=== PATIENT | female | born 1985 | race Caucasian/White ===

== ENCOUNTER 2019-10-18 20:16 | Inpatient (IN) | payer MEDICAID, OTHER ==
[~2019-10-18] VITALS: Ht 157.5 cm; Wt 106.2 kg
[~2019-10-18 20:16] MED LIST: HYDR-2510 MT; LABE300T3 MT
[2019-10-18] MEDS ORDERED: ACETAMINOPHEN 650MG SUPP PR STA (20:40)
[2019-10-18] MEDS ORDERED: SODIUM CHLORIDE 0.9% 1000ML BAG (SEPSIS BOLUS) IV ONE (20:45)
[2019-10-18] MEDS ORDERED: LEVOFLOXACIN 750MG PREMIX 150 ML IV ONE (20:45)
[2019-10-18] MEDS ORDERED: VANCOMYCIN 1 G PREMIX 200 ML IV ONE (20:45)
[2019-10-18] MEDS ORDERED: HYDROCORTISONE SOD SUCCINATE 100 MG/2 ML VIAL IV ONE (20:45)
[2019-10-18] MEDS ORDERED: ALBUTEROL (0.083%) 2.5MG/3ML NEB ONE (20:54)
[2019-10-18] MEDS ORDERED: VECURONIUM BROMIDE 10 MG/VIAL IV ONE ×2 (21:05→21:30)
[2019-10-18] MEDS ORDERED: SODIUM CHLORIDE 0.9% 10ML VIAL ONE (21:05)
[2019-10-18] MEDS ORDERED: ETOMIDATE 2MG/ML 10ML VIAL IV ONE ×2 (21:05→21:30)
[2019-10-18] MEDS ORDERED: LORAZEPAM 2MG/ML CPJ IV ONE (21:30)
[2019-10-18] MEDS ORDERED: PROPOFOL 10MG/ML 100ML 100 ML IV ONE (21:30)
[2019-10-18 21:59] LABS: HEMATOCRIT. 28.1 % (36.0-48.0); HEMOGLOBIN. 9.1 g/dL (12.0-16.0); MEAN CORPUSCULAR HEMOGLOBIN 31.5 pg (28.0-32.0); MEAN CORPUSCULAR VOLUME 97.5 fL (81.0-99.0); MEAN PLATELET VOLUME 8.4 fl (7.4-10.4); PLATELET 385 x1000/uL (130-400); RED BLOOD CELL COUNT 2.88 mill/uL (4.2-5.4); RED CELL DISTRIBUTION WIDTH 20.5 % (11.6-14.6)
[2019-10-18 22:02] LABS: CLARITY URINE CLEAR (CLEAR); COLOR URINE YELLOW (YELLOW); KETONES URINE NEGATIVE (NEGATIVE); LEUKOCYTE ESTERASE URINE 3+ (NEGATIVE); NITRITE URINE NEGATIVE (NEGATIVE); OCCULT BLOOD URINE TRACE (NEGATIVE); PROTEIN URINE 1+ (NEGATIVE); SPECIFIC GRAVITY URINE 1.009 (1.005-1.030); UROBILINOGEN URINE 0.2 E.U./dL (0.2-1.0)
[2019-10-18 22:15] LABS: CHLORIDE 99 mEq/L (98-107)
[2019-10-18 22:44] LABS: BG BASE EXCESS -7.9 mmol/L (-2.0-2.0); BG CARBOXYHEMOGLOBIN 0.3 % (0.5-1.5); BG DEOXYHEMOGLOBIN 1.3 % (0.0-5.0); BG FRACTION INSPIRED OXYGEN 100; BG HCO3 ACT 20.1 mmol/L (22.0-26.0); BG METHEMOGLOBIN 0.3 % (0.0-1.5); BG OXYGEN SATURATION 98.7 % (92.0-98.5); BG OXYHEMOGLOBIN 98.1 % (94.0-97.0); BG PCO2 54.1 mmHg (35.0-45.0); BG PH 7.188 (7.350-7.450); BG PO2 171.2 mmHg (75.0-100.0); BG SAMPLE SITE RIGHT RADIAL; BG TIDAL VOLUME(mL) 550 mL; BG TOTAL HEMOGLOBIN 8.7 g/dL (12.0-18.0); BG VENT MODE VENT - A/C; BG VENT RATE 16 set
[2019-10-18] MEDS ORDERED: SODIUM POLYSTYRENE SULFONATE 15 G/60 ML BOT NG ONE (22:45)
[2019-10-18] MEDS ORDERED: CALCIUM CHLORIDE 1GM/10ML SYR IV ONE (22:45)
[2019-10-18] MEDS ORDERED: SODIUM BICARBONATE 8.4% 1 MEQ/ML 50ML SYR IV ONE (22:45)
[2019-10-18 22:50] LABS: INR 0.9
[2019-10-18 22:54] LABS: ATYPICAL LYMPHOCYTES 3; PLATELET ESTIMATE NORMAL
[2019-10-19] VITALS (74 sets, daily range): BP systolic 109–175; BP diastolic 54–105
[2019-10-19] MEDS ORDERED: LEVOFLOXACIN 750MG PREMIX 150 ML IV SCH (05:30)
[2019-10-19] MEDS ORDERED: MAGNESIUM/ALUMINUM HYDROXIDE/SIMETHICONE 30ML UDC PO PRN (06:30)
[2019-10-19] MEDS ORDERED: HYDROCODONE/ACETAMINOPHEN 5/325MG TABLET GT PRN (06:30)
[2019-10-19] MEDS ORDERED: DOCUSATE SODIUM SUGAR FREE 100MG/10ML UDC GT PRN (06:30)
[2019-10-19] MEDS ORDERED: IPRATROPIUM/ALBUTEROL 0.5-3(2.5)MG/3ML NEB NEB PRN (06:30)
[2019-10-19] MEDS ORDERED: LEVOFLOXACIN 500MG PREMIX 100 ML IV SCH (06:30)
[2019-10-19] MEDS ORDERED: GUAIFENESIN 200MG/10ML SUGAR FREE UDC PO PRN (06:30)
[2019-10-19] MEDS ORDERED: ONDANSETRON HCL 4MG/2ML INJ IV PRN (06:30)
[2019-10-19] MEDS ORDERED: DIPHENHYDRAMINE 50MG/ML VIAL IV PRN (06:30)
[2019-10-19] MEDS ORDERED: NA PHOS,M-B/NA PHOS,DI-BA ENEMA 118ML PR PRN (06:30)
[2019-10-19] MEDS: DEXT 5%/0.45% NACL 1000ML 1,000 ML IV SCH ×2 (07:00→19:14)
[2019-10-19 07:45] LABS: BG BASE EXCESS -5.9 mmol/L (-2.0-2.0); BG CARBOXYHEMOGLOBIN 0.3 % (0.5-1.5); BG DEOXYHEMOGLOBIN 4.6 % (0.0-5.0); BG HCO3 ACT 18.1 mmol/L (22.0-26.0); BG METHEMOGLOBIN 0.1 % (0.0-1.5); BG OXYGEN SATURATION 95.4 % (92.0-98.5); BG PCO2 29.4 mmHg (35.0-45.0); BG PH 7.407 (7.350-7.450); BG PO2 74.3 mmHg (75.0-100.0); BG SAMPLE SITE RIGHT BRACHIAL; BG TIDAL VOLUME(mL) 550 mL; BG TOTAL HEMOGLOBIN 7.2 g/dL (12.0-18.0); BG VENT MODE VENT - A/C; BG VENT RATE 22 set
[2019-10-19] MEDS ORDERED: VANCOMYCIN 1 G PREMIX 200 ML IV NR (08:00)
[2019-10-19] MEDS: ASPIRIN 81MG TABLET GT SCH (08:27)
[2019-10-19] MEDS: ENOXAPARIN 40MG/0.4ML SYR SUBCUT SCH (08:28)
[2019-10-19] MEDS: METRONIDAZOLE 500 MG PREMIX 100 ML IV SCH ×3 (08:28→21:08)
[2019-10-19] MEDS: PROPOFOL 10MG/ML 100ML 100 ML IV PRN ×2 (13:16→20:59)
[2019-10-19] MEDS ORDERED: LEVOFLOXACIN 250MG PREMIX 50 ML IV SCH (22:00)
[2019-10-20] VITALS (95 sets, daily range): BP systolic 129–184; BP diastolic 73–114
[2019-10-20] MEDS: PROPOFOL 10MG/ML 100ML 100 ML IV PRN (02:34)
[2019-10-20 05:24] LABS: HEMOGLOBIN. 8.1 g/dL (12.0-16.0); MEAN CORPUSCULAR HEMOGLOBIN 33.9 pg (28.0-32.0); MEAN CORPUSCULAR VOLUME 95.9 fL (81.0-99.0); MEAN PLATELET VOLUME 8.6 fl (7.4-10.4); PLATELET 250 x1000/uL (130-400); RED BLOOD CELL COUNT 2.39 mill/uL (4.2-5.4); RED CELL DISTRIBUTION WIDTH 20.3 % (11.6-14.6)
[2019-10-20 05:30] LABS: CHLORIDE 107 mEq/L (98-107)
[2019-10-20 05:40] LABS: T4 FREE 0.97 ng/dL (0.76-1.46)
[2019-10-20 05:51] LABS: LDL CHOLESTEROL 59 mg/dL (5-100)
[2019-10-20 05:56] LABS: HDL CHOLESTEROL 33 mg/dL (40-59)
[2019-10-20] MEDS: METRONIDAZOLE 500 MG PREMIX 100 ML IV SCH ×3 (06:27→22:12)
[2019-10-20] MEDS: DEXT 5%/0.45% NACL 1000ML 1,000 ML IV SCH ×3 (06:28→22:13)
[2019-10-20 06:37] LABS: PLATELET ESTIMATE NORMAL
[2019-10-20] MEDS: POTASSIUM CHLORIDE 20MEQ/PACKET PO SCH ×2 (08:18→16:47)
[2019-10-20] MEDS: ASPIRIN 81MG TABLET GT SCH (08:18)
[2019-10-20] MEDS: AMLODIPINE 5MG TABLET PO SCH (08:19)
[2019-10-20] MEDS: LEVOTHYROXINE SODIUM 50MCG TABLET PO SCH (08:19)
[2019-10-20] MEDS: ENOXAPARIN 40MG/0.4ML SYR SUBCUT SCH (08:20)
[2019-10-20 09:45] LABS: BG BASE EXCESS 0.1 mmol/L (-2.0-2.0); BG CARBOXYHEMOGLOBIN 0.3 % (0.5-1.5); BG DEOXYHEMOGLOBIN 0.8 % (0.0-5.0); BG FRACTION INSPIRED OXYGEN 85; BG HCO3 ACT 23.7 mmol/L (22.0-26.0); BG METHEMOGLOBIN 0.3 % (0.0-1.5); BG OXYGEN SATURATION 99.2 % (92.0-98.5); BG OXYHEMOGLOBIN 98.6 % (94.0-97.0); BG PH 7.462 (7.350-7.450); BG PO2 220.7 mmHg (75.0-100.0); BG SAMPLE SITE RIGHT RADIAL; BG TIDAL VOLUME(mL) 550 mL; BG TOTAL HEMOGLOBIN 8.4 g/dL (12.0-18.0); BG VENT MODE VENT - A/C; BG VENT RATE 22 set
[2019-10-20] MEDS ORDERED: LORAZEPAM 2MG/ML CPJ IV PRN (10:45)
[2019-10-20] MEDS ORDERED: MORPHINE SULFATE 2 MG/ML CPJ (NOT FOR IM USE) IV PRN (11:00)
[2019-10-20] MEDS: LEVOFLOXACIN 750MG PREMIX 150 ML IV SCH (11:14)
[2019-10-20] MEDS: CLONIDINE 0.1MG TABLET PO PRN (11:15)
[2019-10-20] MEDS: HYDRALAZINE HCL 25MG TABLET PO SCH ×2 (13:25→22:13)
[2019-10-20] MEDS: MORPHINE SULFATE 2 MG/ML CPJ (NOT FOR IM USE) IV PRN (13:26)
[2019-10-20] MEDS ORDERED: CLONIDINE 0.1MG TABLET PO NR (15:15)
[2019-10-20] MEDS: LORAZEPAM 2MG/ML CPJ IV PRN (15:29)
[2019-10-20] MEDS: IPRATROPIUM/ALBUTEROL 0.5-3(2.5)MG/3ML NEB HHN SCH (20:20)
[2019-10-21] VITALS (34 sets, daily range): BP systolic 125–184; BP diastolic 77–111
[2019-10-21] MEDS: LORAZEPAM 2MG/ML CPJ IV PRN ×3 (00:05→23:51)
[2019-10-21] MEDS: MORPHINE SULFATE 2 MG/ML CPJ (NOT FOR IM USE) IV PRN (00:07)
[2019-10-21] MEDS: CLONIDINE 0.1MG TABLET PO PRN ×3 (00:09→23:51)
[2019-10-21] MEDS: HYDRALAZINE HCL 25MG TABLET PO SCH ×3 (05:33→21:29)
[2019-10-21] MEDS: METRONIDAZOLE 500 MG PREMIX 100 ML IV SCH ×3 (05:33→21:28)
[2019-10-21] MEDS: LEVOTHYROXINE SODIUM 50MCG TABLET PO SCH (05:33)
[2019-10-21 05:39] LABS: HEMATOCRIT. 24.4 % (36.0-48.0); HEMOGLOBIN. 8.3 g/dL (12.0-16.0); MEAN CORPUSCULAR HEMOGLOBIN 32.3 pg (28.0-32.0); MEAN CORPUSCULAR VOLUME 95.4 fL (81.0-99.0); MEAN PLATELET VOLUME 8.1 fl (7.4-10.4); PLATELET 272 x1000/uL (130-400); RED BLOOD CELL COUNT 2.56 mill/uL (4.2-5.4); RED CELL DISTRIBUTION WIDTH 19.9 % (11.6-14.6)
[2019-10-21 05:48] LABS: PHOSPHORUS 3.6 mg/dL (2.5-4.9)
[2019-10-21] MEDS ORDERED: POTASSIUM CHLORIDE 20MEQ/PACKET PO SCH (06:30)
[2019-10-21] MEDS: DEXTROSE 5% WATER 1,000 ML IV SCH ×2 (06:41→22:12)
[2019-10-21] MEDS ORDERED: MAGNESIUM 2 G PREMIX 50 ML IV SCH (08:00)
[2019-10-21] MEDS ORDERED: POTASSIUM CHLORIDE INJ 60 MEQ in DEXT 5% WATER 500 ML IV SCH (08:00)
[2019-10-21 08:15] LABS: NUCLEATED RED BLOOD CELLS 1 /100 WBC; PLATELET ESTIMATE NORMAL
[2019-10-21 08:19] LABS: BG BASE EXCESS -4.5 mmol/L (-2.0-2.0); BG CARBOXYHEMOGLOBIN 0.7 % (0.5-1.5); BG DEOXYHEMOGLOBIN 1.2 % (0.0-5.0); BG HCO3 ACT 19.5 mmol/L (22.0-26.0); BG METHEMOGLOBIN 0.4 % (0.0-1.5); BG OXYGEN SATURATION 98.8 % (92.0-98.5); BG OXYHEMOGLOBIN 97.7 % (94.0-97.0); BG PCO2 30.9 mmHg (35.0-45.0); BG PH 7.417 (7.350-7.450); BG PO2 149.3 mmHg (75.0-100.0); BG SAMPLE SITE RIGHT BRACHIAL; BG TIDAL VOLUME(mL) 550 mL; BG TOTAL HEMOGLOBIN 7.7 g/dL (12.0-18.0); BG VENT MODE VENT - A/C; BG VENT RATE 16 set
[2019-10-21] MEDS: IPRATROPIUM/ALBUTEROL 0.5-3(2.5)MG/3ML NEB HHN SCH ×2 (09:39→14:38)
[2019-10-21] MEDS: AMLODIPINE 5MG TABLET PO SCH (11:34)
[2019-10-21] MEDS: ASPIRIN 81MG TABLET GT SCH (11:34)
[2019-10-21] MEDS: ENOXAPARIN 40MG/0.4ML SYR SUBCUT SCH (11:34)
[2019-10-22] VITALS (35 sets, daily range): BP systolic 131–176; BP diastolic 78–109
[2019-10-22] MEDS: METRONIDAZOLE 500 MG PREMIX 100 ML IV SCH ×3 (05:46→23:28)
[2019-10-22] MEDS: LEVOTHYROXINE SODIUM 50MCG TABLET PO SCH (05:53)
[2019-10-22] MEDS: HYDRALAZINE HCL 25MG TABLET PO SCH ×3 (05:53→21:39)
[2019-10-22 05:58] LABS: HEMATOCRIT. 25.6 % (36.0-48.0); HEMOGLOBIN. 8.5 g/dL (12.0-16.0); MEAN CORPUSCULAR HEMOGLOBIN 31.4 pg (28.0-32.0); MEAN CORPUSCULAR VOLUME 95.1 fL (81.0-99.0); MEAN PLATELET VOLUME 7.9 fl (7.4-10.4); PLATELET 296 x1000/uL (130-400); RED CELL DISTRIBUTION WIDTH 20.2 % (11.6-14.6)
[2019-10-22 06:19] LABS: PHOSPHORUS 3.1 mg/dL (2.5-4.9)
[2019-10-22 06:56] LABS: PLATELET ESTIMATE NORMAL
[2019-10-22] MEDS: ASPIRIN 81MG TABLET GT SCH (08:38)
[2019-10-22] MEDS: AMLODIPINE 5MG TABLET PO SCH (08:38)
[2019-10-22] MEDS: DESMOPRESSIN ACETATE 0.1MG TABLET PO SCH ×2 (08:38→23:28)
[2019-10-22] MEDS: LORAZEPAM 2MG/ML CPJ IV PRN ×2 (08:39→21:57)
[2019-10-22] MEDS: POTASSIUM CHLORIDE 20MEQ/PACKET PO SCH ×2 (08:39→17:56)
[2019-10-22] MEDS: ENOXAPARIN 30MG/0.3ML SYR SUBCUT SCH ×2 (08:39→21:39)
[2019-10-22] MEDS: IPRATROPIUM/ALBUTEROL 0.5-3(2.5)MG/3ML NEB HHN SCH ×3 (09:02→20:50)
[2019-10-22] MEDS: LEVOFLOXACIN 750MG PREMIX 150 ML IV SCH (10:58)
[2019-10-22] MEDS: ACETYLCYSTEINE 100MG/ML 10% VIAL 4ML INH SCH (13:50)
[2019-10-22] MEDS ORDERED: VANCOMYCIN 1,000 MG in DEXT 5% WATER 250 ML IV SCH (14:00)
[2019-10-22] MEDS: NYSTATIN POWDER 15GM TOP SCH (18:47)
[2019-10-22] MEDS: CLONIDINE 0.1MG TABLET PO PRN (21:39)
[2019-10-23] VITALS (12 sets, daily range): BP systolic 138–161; BP diastolic 80–100
[2019-10-23] MEDS: ACETAMINOPHEN 325MG TABLET PO PRN ×2 (01:06→21:44)
[2019-10-23] MEDS: IPRATROPIUM/ALBUTEROL 0.5-3(2.5)MG/3ML NEB HHN SCH ×4 (02:30→20:09)
[2019-10-23] MEDS: HYDRALAZINE HCL 25MG TABLET PO SCH ×3 (06:23→21:44)
[2019-10-23] MEDS: METRONIDAZOLE 500 MG PREMIX 100 ML IV SCH ×3 (06:23→21:44)
[2019-10-23 06:34] LABS: HEMATOCRIT. 24.1 % (36.0-48.0); HEMOGLOBIN. 8.3 g/dL (12.0-16.0); MEAN CORPUSCULAR HEMOGLOBIN 32.3 pg (28.0-32.0); MEAN CORPUSCULAR VOLUME 94.2 fL (81.0-99.0); MEAN PLATELET VOLUME 7.6 fl (7.4-10.4); PLATELET 279 x1000/uL (130-400); RED BLOOD CELL COUNT 2.56 mill/uL (4.2-5.4)
[2019-10-23 07:05] LABS: PHOSPHORUS 2.7 mg/dL (2.5-4.9)
[2019-10-23] MEDS: LEVOTHYROXINE SODIUM 50MCG TABLET PO SCH (07:08)
[2019-10-23 08:31] LABS: PLATELET ESTIMATE NORMAL
[2019-10-23] MEDS ORDERED: MAGNESIUM 2 G PREMIX 50 ML IV SCH (09:00)
[2019-10-23] MEDS: ENOXAPARIN 30MG/0.3ML SYR SUBCUT SCH ×2 (09:00→21:44)
[2019-10-23] MEDS: ASPIRIN 81MG TABLET GT SCH (09:17)
[2019-10-23] MEDS: DESMOPRESSIN ACETATE 0.1MG TABLET PO SCH ×2 (09:17→21:44)
[2019-10-23] MEDS: AMLODIPINE 5MG TABLET PO SCH (09:17)
[2019-10-23] MEDS: POTASSIUM CHLORIDE 20MEQ/PACKET PO SCH ×2 (09:18→17:31)
[2019-10-23] MEDS: NYSTATIN POWDER 15GM TOP SCH ×2 (09:19→17:30)
[2019-10-23] MEDS ORDERED: LEVOFLOXACIN 750MG PREMIX 150 ML IV SCH (11:00)
[2019-10-23] MEDS: SODIUM HYPOCHLORITE 0.125% 473ML SOLUTION TOP SCH ×2 (13:24→21:45)
[2019-10-23] MEDS: MORPHINE SULFATE 2 MG/ML CPJ (NOT FOR IM USE) IV PRN (15:32)
[2019-10-23] MEDS: ACETYLCYSTEINE 100MG/ML 10% VIAL 4ML INH SCH (20:09)
[2019-10-24] VITALS (12 sets, daily range): BP systolic 132–162; BP diastolic 81–102
[2019-10-24] MEDS: IPRATROPIUM/ALBUTEROL 0.5-3(2.5)MG/3ML NEB HHN SCH ×3 (02:02→20:37)
[2019-10-24] MEDS: ACETAMINOPHEN 325MG TABLET PO PRN (05:42)
[2019-10-24] MEDS: HYDRALAZINE HCL 25MG TABLET PO SCH ×3 (05:43→20:38)
[2019-10-24] MEDS: METRONIDAZOLE 500 MG PREMIX 100 ML IV SCH (05:43)
[2019-10-24 06:37] LABS: CHLORIDE 113 mEq/L (98-107); HEMATOCRIT. 24.4 % (36.0-48.0); HEMOGLOBIN. 8.2 g/dL (12.0-16.0); MEAN CORPUSCULAR HEMOGLOBIN 31.8 pg (28.0-32.0); MEAN CORPUSCULAR VOLUME 95.1 fL (81.0-99.0); MEAN PLATELET VOLUME 7.3 fl (7.4-10.4); PLATELET 295 x1000/uL (130-400); RED BLOOD CELL COUNT 2.56 mill/uL (4.2-5.4); RED CELL DISTRIBUTION WIDTH 19.9 % (11.6-14.6)
[2019-10-24] MEDS: LEVOTHYROXINE SODIUM 50MCG TABLET PO SCH (07:30)
[2019-10-24] MEDS: ACETYLCYSTEINE 100MG/ML 10% VIAL 4ML INH SCH ×2 (08:48→20:37)
[2019-10-24] MEDS: DESMOPRESSIN ACETATE 0.1MG TABLET PO SCH ×2 (08:59→20:38)
[2019-10-24] MEDS: ENOXAPARIN 30MG/0.3ML SYR SUBCUT SCH ×2 (08:59→20:38)
[2019-10-24] MEDS: SODIUM HYPOCHLORITE 0.125% 473ML SOLUTION TOP SCH ×2 (08:59→20:39)
[2019-10-24] MEDS: ASPIRIN 81MG TABLET GT SCH (08:59)
[2019-10-24] MEDS: NYSTATIN POWDER 15GM TOP SCH ×2 (08:59→17:55)
[2019-10-24] MEDS: POTASSIUM CHLORIDE 20MEQ/PACKET PO SCH ×2 (08:59→17:00)
[2019-10-24] MEDS: AMLODIPINE 5MG TABLET PO SCH (09:00)
[2019-10-24] MEDS: MAGNESIUM 2 G PREMIX 50 ML IV NR (11:30)
[2019-10-24] MEDS ORDERED: POTASSIUM PHOS,M-BASIC-D-BASIC 20 MMOL in DEXT 5% WATER 243.3333 ML IV NR (12:00)
[2019-10-24 12:31] LABS: PLATELET ESTIMATE NORMAL
[2019-10-24] MEDS: AZTREONAM 1 G in DEXTROSE 5% WATER 50 ML IV SCH (13:00)
[2019-10-24] MEDS ORDERED: VANCOMYCIN 1250MG in DEXTROSE 5% WATER 250ML IV SCH (14:00)
[2019-10-25] VITALS (18 sets, daily range): BP systolic 117–168; BP diastolic 60–101
[2019-10-25] MEDS: AZTREONAM 1 G in DEXTROSE 5% WATER 50 ML IV SCH ×2 (00:46→12:59)
[2019-10-25] MEDS: IPRATROPIUM/ALBUTEROL 0.5-3(2.5)MG/3ML NEB HHN SCH ×5 (02:16→20:27)
[2019-10-25] MEDS: CLONIDINE 0.1MG TABLET PO PRN (03:42)
[2019-10-25] MEDS: HYDRALAZINE HCL 25MG TABLET PO SCH ×3 (05:11→21:07)
[2019-10-25] MEDS: ACETAMINOPHEN 325MG TABLET PO PRN (05:15)
[2019-10-25 07:37] LABS: HEMATOCRIT. 24.1 % (36.0-48.0); MEAN CORPUSCULAR HEMOGLOBIN 31.6 pg (28.0-32.0); MEAN CORPUSCULAR VOLUME 95.9 fL (81.0-99.0); MEAN PLATELET VOLUME 7.6 fl (7.4-10.4); PLATELET 307 x1000/uL (130-400); RED BLOOD CELL COUNT 2.52 mill/uL (4.2-5.4); RED CELL DISTRIBUTION WIDTH 20.1 % (11.6-14.6)
[2019-10-25 07:59] LABS: CHLORIDE 112 mEq/L (98-107)
[2019-10-25] MEDS: LEVOTHYROXINE SODIUM 50MCG TABLET PO SCH (08:41)
[2019-10-25] MEDS: ENOXAPARIN 30MG/0.3ML SYR SUBCUT SCH (08:41)
[2019-10-25] MEDS: AMLODIPINE 5MG TABLET PO SCH (08:41)
[2019-10-25] MEDS: ASPIRIN 81MG TABLET GT SCH (08:41)
[2019-10-25] MEDS: POTASSIUM CHLORIDE 20MEQ/PACKET PO SCH ×2 (08:42→16:43)
[2019-10-25] MEDS: DESMOPRESSIN ACETATE 0.1MG TABLET PO SCH ×2 (08:42→21:07)
[2019-10-25] MEDS: SODIUM HYPOCHLORITE 0.125% 473ML SOLUTION TOP SCH ×2 (08:42→20:42)
[2019-10-25] MEDS: NYSTATIN POWDER 15GM TOP SCH ×2 (08:43→16:43)
[2019-10-25] MEDS: ACETYLCYSTEINE 100MG/ML 10% VIAL 4ML INH SCH ×3 (08:53→20:28)
[2019-10-25] MEDS: ACETAMINOPHEN 650MG/20.3ML UDC PEG PRN ×2 (11:20→18:26)
[2019-10-25] MEDS ORDERED: VANCOMYCIN 1,000 MG in DEXT 5% WATER 250 ML IV SCH (12:00)
[2019-10-25] MEDS ORDERED: VANCOMYCIN 750 MG in DEXT 5% WATER 250 ML IV SCH (12:00)
[2019-10-25 12:07] LABS: HEMATOCRIT 23.7 % (36.0-48.0); HEMOGLOBIN 7.8 g/dL (12.0-16.0)
[2019-10-25 15:28] LABS: PLATELET ESTIMATE NORMAL
[2019-10-25] MEDS ORDERED: DIGOXIN 500MCG/2ML AMP IV NR (15:30)
[2019-10-25] MEDS: PANTOPRAZOLE 40MG DR TABLET PO SCH (16:42)
[2019-10-25 18:49] LABS: HEMATOCRIT 22.9 % (36.0-48.0); HEMOGLOBIN 7.5 g/dL (12.0-16.0)
[2019-10-26] VITALS (17 sets, daily range): BP systolic 113–149; BP diastolic 69–101
[2019-10-26 00:55] LABS: HEMOGLOBIN 8.1 g/dL (12.0-16.0)
[2019-10-26] MEDS: AZTREONAM 1 G in DEXTROSE 5% WATER 50 ML IV SCH ×2 (01:10→14:13)
[2019-10-26 01:11] LABS: PROTHROMBIN TIME 11.2 sec (9.6-11.0)
[2019-10-26] MEDS: HYDRALAZINE HCL 25MG TABLET PO SCH ×3 (05:07→21:56)
[2019-10-26 07:46] LABS: HEMATOCRIT. 21.4 % (36.0-48.0); HEMOGLOBIN. 7.3 g/dL (12.0-16.0); MEAN CORPUSCULAR HEMOGLOBIN 32.3 pg (28.0-32.0); MEAN CORPUSCULAR VOLUME 94.3 fL (81.0-99.0); MEAN PLATELET VOLUME 7.5 fl (7.4-10.4); PLATELET 269 x1000/uL (130-400); RED BLOOD CELL COUNT 2.27 mill/uL (4.2-5.4); RED CELL DISTRIBUTION WIDTH 19.6 % (11.6-14.6)
[2019-10-26 08:04] LABS: CHLORIDE 113 mEq/L (98-107)
[2019-10-26] MEDS: POTASSIUM CHLORIDE 20MEQ/PACKET PO SCH (08:22)
[2019-10-26] MEDS: PANTOPRAZOLE 40MG DR TABLET PO SCH (08:27)
[2019-10-26] MEDS: AMLODIPINE 5MG TABLET PO SCH (08:27)
[2019-10-26] MEDS: IPRATROPIUM/ALBUTEROL 0.5-3(2.5)MG/3ML NEB HHN SCH ×3 (08:36→20:22)
[2019-10-26] MEDS: ACETYLCYSTEINE 100MG/ML 10% VIAL 4ML INH SCH (08:37)
[2019-10-26] MEDS: DESMOPRESSIN ACETATE 0.1MG TABLET PO SCH ×2 (08:55→21:56)
[2019-10-26] MEDS: LEVOTHYROXINE SODIUM 50MCG TABLET PO SCH (08:55)
[2019-10-26] MEDS: NYSTATIN POWDER 15GM TOP SCH ×2 (08:56→17:31)
[2019-10-26 14:04] LABS: PLATELET ESTIMATE NORMAL
[2019-10-26] MEDS: LINEZOLID 600 MG PREMIX 300 ML IV SCH (14:14)
[2019-10-26] MEDS ORDERED: VANCOMYCIN 750 MG in DEXT 5% WATER 250 ML IV SCH (18:00)
[2019-10-26 18:55] LABS: PROTHROMBIN TIME 10.7 sec (9.6-11.0)
[2019-10-27] VITALS (12 sets, daily range): BP systolic 112–152; BP diastolic 78–99
[2019-10-27] MEDS: AZTREONAM 1 G in DEXTROSE 5% WATER 50 ML IV SCH ×2 (01:07→13:02)
[2019-10-27] MEDS: LINEZOLID 600 MG PREMIX 300 ML IV SCH ×2 (01:08→13:03)
[2019-10-27] MEDS: ACETYLCYSTEINE 100MG/ML 10% VIAL 4ML INH SCH ×2 (01:50→08:50)
[2019-10-27] MEDS: IPRATROPIUM/ALBUTEROL 0.5-3(2.5)MG/3ML NEB HHN SCH ×4 (01:50→21:04)
[2019-10-27] MEDS: HYDRALAZINE HCL 25MG TABLET PO SCH ×3 (06:40→20:56)
[2019-10-27] MEDS: DESMOPRESSIN ACETATE 0.1MG TABLET PO SCH (09:04)
[2019-10-27] MEDS: LEVOTHYROXINE SODIUM 50MCG TABLET PO SCH (09:04)
[2019-10-27] MEDS: ACETAMINOPHEN 650MG/20.3ML UDC PEG PRN ×2 (09:04→23:27)
[2019-10-27] MEDS: PANTOPRAZOLE 40MG DR TABLET PO SCH (09:04)
[2019-10-27] MEDS: AMLODIPINE 5MG TABLET PO SCH (09:05)
[2019-10-27] MEDS: NYSTATIN POWDER 15GM TOP SCH ×2 (09:05→17:56)
[2019-10-27 12:22] LABS: HEMATOCRIT. 23.2 % (36.0-48.0); MEAN CORPUSCULAR HEMOGLOBIN 32.6 pg (28.0-32.0); MEAN CORPUSCULAR VOLUME 94.8 fL (81.0-99.0); MEAN PLATELET VOLUME 7.5 fl (7.4-10.4); PLATELET 244 x1000/uL (130-400); RED BLOOD CELL COUNT 2.45 mill/uL (4.2-5.4)
[2019-10-27 12:32] LABS: CHLORIDE 112 mEq/L (98-107)
[2019-10-27 13:15] LABS: NUCLEATED RED BLOOD CELLS 3 /100 WBC; PLATELET ESTIMATE NORMAL
[2019-10-27] MEDS ORDERED: POTASSIUM CHLORIDE 20MEQ/PACKET PO NR (18:30)
[2019-10-28] VITALS (12 sets, daily range): BP systolic 143–169; BP diastolic 90–102
[2019-10-28] MEDS: AZTREONAM 1 G in DEXTROSE 5% WATER 50 ML IV SCH ×2 (01:21→12:37)
[2019-10-28] MEDS: LINEZOLID 600 MG PREMIX 300 ML IV SCH ×2 (01:22→13:57)
[2019-10-28] MEDS: IPRATROPIUM/ALBUTEROL 0.5-3(2.5)MG/3ML NEB HHN SCH ×4 (01:57→20:53)
[2019-10-28] MEDS: HYDRALAZINE HCL 25MG TABLET PO SCH ×3 (05:44→21:32)
[2019-10-28 06:23] LABS: HEMATOCRIT. 22.2 % (36.0-48.0); HEMOGLOBIN. 7.5 g/dL (12.0-16.0); MEAN CORPUSCULAR HEMOGLOBIN 33.2 pg (28.0-32.0); MEAN CORPUSCULAR VOLUME 98.6 fL (81.0-99.0); MEAN PLATELET VOLUME 7.9 fl (7.4-10.4); PLATELET 233 x1000/uL (130-400); RED BLOOD CELL COUNT 2.25 mill/uL (4.2-5.4); RED CELL DISTRIBUTION WIDTH 18.7 % (11.6-14.6)
[2019-10-28 06:26] LABS: CHLORIDE 110 mEq/L (98-107)
[2019-10-28 08:51] LABS: NUCLEATED RED BLOOD CELLS 1 /100 WBC; PLATELET ESTIMATE NORMAL
[2019-10-28] MEDS: PANTOPRAZOLE 40MG DR TABLET PO SCH (09:09)
[2019-10-28] MEDS: NYSTATIN POWDER 15GM TOP SCH ×2 (09:09→17:35)
[2019-10-28] MEDS: AMLODIPINE 5MG TABLET PO SCH (09:09)
[2019-10-28] MEDS: LEVOTHYROXINE SODIUM 50MCG TABLET PO SCH (09:09)
[2019-10-28] MEDS: ACETAMINOPHEN 650MG/20.3ML UDC PEG PRN (12:37)
[2019-10-28] MEDS ORDERED: POTASSIUM CHLORIDE 20MEQ TABLET SR PO NR (20:15)
[2019-10-29] VITALS (12 sets, daily range): BP systolic 139–166; BP diastolic 52–101
[2019-10-29] MEDS: AZTREONAM 1 G in DEXTROSE 5% WATER 50 ML IV SCH ×2 (01:09→12:29)
[2019-10-29] MEDS: LINEZOLID 600 MG PREMIX 300 ML IV SCH ×2 (01:10→14:02)
[2019-10-29] MEDS: IPRATROPIUM/ALBUTEROL 0.5-3(2.5)MG/3ML NEB HHN SCH ×4 (01:57→20:25)
[2019-10-29] MEDS: HYDRALAZINE HCL 25MG TABLET PO SCH ×3 (06:12→22:06)
[2019-10-29 06:13] LABS: HEMATOCRIT. 24.1 % (36.0-48.0); HEMOGLOBIN. 8.1 g/dL (12.0-16.0); MEAN CORPUSCULAR HEMOGLOBIN 32.9 pg (28.0-32.0); MEAN CORPUSCULAR VOLUME 97.7 fL (81.0-99.0); MEAN PLATELET VOLUME 7.9 fl (7.4-10.4); PLATELET 252 x1000/uL (130-400); RED BLOOD CELL COUNT 2.47 mill/uL (4.2-5.4); RED CELL DISTRIBUTION WIDTH 18.9 % (11.6-14.6)
[2019-10-29 06:22] LABS: CHLORIDE 110 mEq/L (98-107)
[2019-10-29] MEDS ORDERED: POTASSIUM CHLORIDE 20MEQ TABLET SR PO NR (08:00)
[2019-10-29] MEDS ORDERED: POTASSIUM CHLORIDE 20MEQ/PACKET PO SCH (08:15)
[2019-10-29] MEDS: PANTOPRAZOLE 40MG DR TABLET PO SCH (09:13)
[2019-10-29] MEDS: LEVOTHYROXINE SODIUM 50MCG TABLET PO SCH (09:13)
[2019-10-29] MEDS: ACETAMINOPHEN 650MG/20.3ML UDC PEG PRN (09:14)
[2019-10-29] MEDS: AMLODIPINE 5MG TABLET PO SCH (09:14)
[2019-10-29] MEDS: NYSTATIN POWDER 15GM TOP SCH ×2 (09:20→16:35)
[2019-10-29] MEDS ORDERED: POTASSIUM CHLORIDE 20MEQ TABLET SR PO SCH (14:00)
[2019-10-29] MEDS: POTASSIUM CHLORIDE 20MEQ/PACKET GT SCH (16:35)
[2019-10-29 17:16] LABS: PLATELET ESTIMATE NORMAL
[2019-10-30] VITALS (12 sets, daily range): BP systolic 151–172; BP diastolic 87–122
[2019-10-30] MEDS: LINEZOLID 600 MG PREMIX 300 ML IV SCH ×2 (02:21→15:29)
[2019-10-30] MEDS: IPRATROPIUM/ALBUTEROL 0.5-3(2.5)MG/3ML NEB HHN SCH ×4 (02:22→20:54)
[2019-10-30] MEDS: HYDRALAZINE HCL 25MG TABLET PO SCH ×3 (05:15→21:07)
[2019-10-30 06:03] LABS: CHLORIDE 111 mEq/L (98-107)
[2019-10-30 06:48] LABS: HEMATOCRIT. 23.7 % (36.0-48.0); MEAN CORPUSCULAR HEMOGLOBIN 33.4 pg (28.0-32.0); MEAN CORPUSCULAR VOLUME 98.8 fL (81.0-99.0); PLATELET 250 x1000/uL (130-400)
[2019-10-30] MEDS: LEVOTHYROXINE SODIUM 50MCG TABLET PO SCH (08:34)
[2019-10-30] MEDS: AMLODIPINE 5MG TABLET PO SCH (08:34)
[2019-10-30] MEDS: POTASSIUM CHLORIDE 20MEQ/PACKET GT SCH (08:35)
[2019-10-30] MEDS: FAMOTIDINE 20MG TABLET PO SCH ×2 (08:35→21:07)
[2019-10-30] MEDS: NYSTATIN POWDER 15GM TOP SCH (08:35)
[2019-10-30] MEDS ORDERED: POTASSIUM CHLORIDE 20MEQ/PACKET PO SCH (09:30)
[2019-10-30 12:26] LABS: NUCLEATED RED BLOOD CELLS 3 /100 WBC
[2019-10-30 12:27] LABS: PLATELET ESTIMATE NORMAL
[2019-10-30] MEDS: AZTREONAM 1 G in DEXTROSE 5% WATER 50 ML IV SCH ×2 (14:44→22:15)
[2019-10-30] MEDS: CLONIDINE 0.1MG TABLET PO PRN (22:17)
[2019-10-31] VITALS: BP 149/97
== END 2019-10-31 01:00 | DRG 130 ==
LOC: ER 20:16 → MICUSO 22:37 → EDBEDREQ 23:00 → EDBEDREQSVC 23:01 → ENRESERV 10-19 02:01 → 5EST 10-22 16:10 → CVICU 10-30 18:25 → 5EST 10-30 18:29
PROVIDERS: ADMIT Internal Medicine; ATTEND Internal Medicine
PROC: 5A1955Z Respiratory Ventilation, Greater than 96 Consecutive Hours (ICD-10-PCS; principal; 2019-10-21)
PROC: 0B21XFZ Change Tracheostomy Device in Trachea, External Approach (ICD-10-PCS; 2019-10-21)
PROC: 30233N1 Transfusion of Nonautologous Red Blood Cells into Peripheral Vein, Percutaneous Approach (ICD-10-PCS; 2019-10-25)
DX: J95.09 Other tracheostomy complication (principal); N17.0 Acute kidney failure with tubular necrosis; J69.0 Pneumonitis due to inhalation of food and vomit; A41.9 Sepsis, unspecified organism; G93.41 Metabolic encephalopathy; E43 Unspecified severe protein-calorie malnutrition; J96.20 Acute and chronic respiratory failure, unspecified whether with hypoxia or hypercapnia; J95.03 Malfunction of tracheostomy stoma; I13.0 Hypertensive heart and chronic kidney disease with heart failure and stage 1 through stage 4 chronic kidney disease, or unspecified chronic kidney disease; N18.1 Chronic kidney disease, stage 1; E86.0 Dehydration; E87.5 Hyperkalemia; E87.1 Hypo-osmolality and hyponatremia; D64.9 Anemia, unspecified; E66.01 Morbid (severe) obesity due to excess calories; K21.9 Gastro-esophageal reflux disease without esophagitis; J98.11 Atelectasis; R41.89 Other symptoms and signs involving cognitive functions and awareness; E03.9 Hypothyroidism, unspecified; Y83.8 Other surgical procedures as the cause of abnormal reaction of the patient, or of later complication, without mention of misadventure at the time of the procedure; Y82.9 Unspecified medical devices associated with adverse incidents; R73.9 Hyperglycemia, unspecified; G62.9 Polyneuropathy, unspecified; L02.214 Cutaneous abscess of groin; Z79.899 Other long term (current) drug therapy; Z99.11 Dependence on respirator [ventilator] status; Z68.41 Body mass index [BMI] 40.0-44.9, adult; Z88.0 Allergy status to penicillin; Z88.8 Allergy status to other drugs, medicaments and biological substances; Q85.00 Neurofibromatosis, unspecified; Y92.89 Other specified places as the place of occurrence of the external cause; Z20.828 Contact with and (suspected) exposure to other viral communicable diseases
CPT/HCPCS: 31500; 36415; 36600; 71045; 73700; 80048; 80053; 80061; 80202; 81003; 82375; 82805; 83605; 83735; 84100; 84145; 84439; 84443; 84484; 85014; 85018; 85025; 85049; 85384; 86850; 86900; 86920; 87070; 87077; 87186; 87635; 87804; 93005; 94002; 94003; 94640; 96361; 96365; 96367; 96375; 99291; J1160; J1200; J1650; J1720; J1956; J2020; J2060; J2270; J2405; J2704; J3370; J3475; J3480; J3490; J7030; J7060; J7070; J7608; P9016

== ENCOUNTER 2019-12-01 22:07 | Inpatient (IN) | payer MEDICAID ==
[~2019-12-01] VITALS: Ht 157.5 cm; Wt 87.5 kg
[2019-12-01] MEDS ORDERED: SODIUM CHLORIDE 0.9% 500 ML IV ONE (22:24)
[2019-12-01] MEDS ORDERED: VANCOMYCIN 1 G PREMIX 200 ML IV ONE (22:30)
[2019-12-01] MEDS ORDERED: LEVOFLOXACIN 750MG PREMIX 150 ML IV ONE (22:30)
[2019-12-01 23:36] LABS: BG BASE EXCESS -9.2 mmol/L (-2.0-2.0); BG CARBOXYHEMOGLOBIN 0.4 % (0.5-1.5); BG DEOXYHEMOGLOBIN 1.3 % (0.0-5.0); BG FRACTION INSPIRED OXYGEN 100; BG HCO3 ACT 17.3 mmol/L (22.0-26.0); BG METHEMOGLOBIN 0.5 % (0.0-1.5); BG OXYGEN SATURATION 98.7 % (92.0-98.5); BG OXYHEMOGLOBIN 97.8 % (94.0-97.0); BG PCO2 39.8 mmHg (35.0-45.0); BG PH 7.256 (7.350-7.450); BG SAMPLE SITE RIGHT RADIAL; BG TIDAL VOLUME(mL) 450 mL; BG VENT MODE VENT - A/C; BG VENT RATE 14 set
[2019-12-02] VITALS (41 sets, daily range): BP systolic 122–181; BP diastolic 69–115
[2019-12-02 00:36] LABS: HEMATOCRIT. 41.6 % (36.0-48.0); HEMOGLOBIN. 13.6 g/dL (12.0-16.0); MEAN CORPUSCULAR HEMOGLOBIN 34.3 pg (28.0-32.0); MEAN CORPUSCULAR VOLUME 104.9 fL (81.0-99.0); RED BLOOD CELL COUNT 3.97 mill/uL (4.2-5.4); RED CELL DISTRIBUTION WIDTH 17.2 % (11.6-14.6)
[2019-12-02 00:38] LABS: CLARITY URINE CLOUDY (CLEAR); COLOR URINE YELLOW (YELLOW); KETONES URINE NEGATIVE (NEGATIVE); LEUKOCYTE ESTERASE URINE 3+ (NEGATIVE); NITRITE URINE NEGATIVE (NEGATIVE); OCCULT BLOOD URINE NEGATIVE (NEGATIVE); PROTEIN URINE 1+ (NEGATIVE); SPECIFIC GRAVITY URINE 1.006 (1.005-1.030)
[2019-12-02 00:42] LABS: CHLORIDE 113 mEq/L (98-107)
[2019-12-02 01:10] LABS: INR 1.3; PROTHROMBIN TIME 14.4 sec (9.6-11.0)
[2019-12-02] MEDS ORDERED: DEXTROSE 50% WATER 50ML SYRINGE IV ONE (01:15)
[2019-12-02] MEDS ORDERED: SODIUM POLYSTYRENE SULFONATE 15 G/60 ML BOT GT ONE (01:15)
[2019-12-02] MEDS ORDERED: SODIUM BICARBONATE 8.4% 1 MEQ/ML 50ML SYR IV ONE (01:15)
[2019-12-02] MEDS ORDERED: INSULIN REGULAR (HUMULIN R) 300UNITS/3ML IV ONE (01:15)
[2019-12-02 02:07] LABS: HCG SCREEN NEGATIVE
[2019-12-02 02:29] LABS: MEAN PLATELET VOLUME 8.4 fl (7.4-10.4); PLATELET 233 x1000/uL (130-400)
[2019-12-02 02:35] LABS: PLATELET ESTIMATE NORMAL
[2019-12-02] MEDS ORDERED: LEVOFLOXACIN 500MG PREMIX 100 ML IV SCH (07:45)
[2019-12-02] MEDS ORDERED: ONDANSETRON HCL 4MG/2ML INJ IV PRN (07:45)
[2019-12-02] MEDS ORDERED: IPRATROPIUM/ALBUTEROL 0.5-3(2.5)MG/3ML NEB HHN PRN (07:45)
[2019-12-02] MEDS ORDERED: DIPHENHYDRAMINE 50MG/ML VIAL IV PRN (07:45)
[2019-12-02] MEDS ORDERED: DOCUSATE SODIUM 100MG CAPSULE PO PRN (07:45)
[2019-12-02] MEDS ORDERED: ACETAMINOPHEN 325MG TABLET PO PRN (07:45)
[2019-12-02] MEDS ORDERED: MAGNESIUM/ALUMINUM HYDROXIDE/SIMETHICONE 30ML UDC PO PRN (07:45)
[2019-12-02] MEDS ORDERED: GUAIFENESIN 200MG/10ML SUGAR FREE UDC PO PRN (07:45)
[2019-12-02] MEDS ORDERED: LORAZEPAM 2MG/ML CPJ IV PRN (07:45)
[2019-12-02] MEDS: ENOXAPARIN 40MG/0.4ML SYR SUBCUT SCH (09:43)
[2019-12-02] MEDS: HYDRALAZINE 20MG/ML VIAL IV PRN ×3 (09:45→23:45)
[2019-12-02 10:32] LABS: CHLORIDE 113 mEq/L (98-107)
[2019-12-02] MEDS: MORPHINE SULFATE 2 MG/ML CPJ (NOT FOR IM USE) IV PRN (12:07)
[2019-12-02] MEDS ORDERED: SODIUM CHLORIDE 0.9% INJ 3ML FLUSH IVF SCH (14:00)
[2019-12-02 15:03] LABS: BG BASE EXCESS 0.2 mmol/L (-2.0-2.0); BG DEOXYHEMOGLOBIN 0.9 % (0.0-5.0); BG HCO3 ACT 21.6 mmol/L (22.0-26.0); BG METHEMOGLOBIN 0.3 % (0.0-1.5); BG OXYGEN SATURATION 99.1 % (92.0-98.5); BG OXYHEMOGLOBIN 98.8 % (94.0-97.0); BG PCO2 26.2 mmHg (35.0-45.0); BG PH 7.534 (7.350-7.450); BG PO2 197.1 mmHg (75.0-100.0); BG SAMPLE SITE RIGHT BRACHIAL; BG TIDAL VOLUME(mL) 450 mL; BG TOTAL HEMOGLOBIN 12.4 g/dL (12.0-18.0); BG VENT MODE VENT - A/C; BG VENT RATE 14 set
[2019-12-02] MEDS ORDERED: DEXTROSE 50% WATER 50ML SYRINGE IV PRN (19:30)
[2019-12-02] MEDS: LEVOFLOXACIN 500MG PREMIX 100 ML IV SCH (22:00)
[2019-12-03] VITALS (51 sets, daily range): BP systolic 121–181; BP diastolic 68–122
[2019-12-03] MEDS: BLOOD SUGAR DIAGNOSTIC STRIP TEST SCH ×5 (00:07→23:58)
[2019-12-03] MEDS: CLONIDINE 0.1MG TABLET PO PRN ×2 (02:51→15:53)
[2019-12-03] MEDS: INSULIN LISPRO 100 UNITS/ML SUBCUT SCH ×4 (06:00→17:41)
[2019-12-03 06:02] LABS: CHLORIDE 111 mEq/L (98-107); HEMATOCRIT. 34.9 % (36.0-48.0); HEMOGLOBIN. 11.8 g/dL (12.0-16.0); MEAN CORPUSCULAR HEMOGLOBIN 34.3 pg (28.0-32.0); MEAN CORPUSCULAR VOLUME 101.7 fL (81.0-99.0); MEAN PLATELET VOLUME 8.4 fl (7.4-10.4); PLATELET 221 x1000/uL (130-400); RED BLOOD CELL COUNT 3.43 mill/uL (4.2-5.4); RED CELL DISTRIBUTION WIDTH 16.7 % (11.6-14.6)
[2019-12-03] MEDS: HYDRALAZINE 20MG/ML VIAL IV PRN ×2 (06:23→16:56)
[2019-12-03] MEDS ORDERED: POTASSIUM CHLORIDE INJ 40 MEQ in DEXT 5% WATER 250 ML IV ONE (07:45)
[2019-12-03] MEDS ORDERED: KCL 20MEQ/100ML PREMIX 100 ML IV ONE (07:45)
[2019-12-03] MEDS: ENOXAPARIN 40MG/0.4ML SYR SUBCUT SCH (08:36)
[2019-12-03] MEDS ORDERED: POTASSIUM CHLORIDE INJ 60 MEQ in DEXT 5% WATER 500 ML IV NR (09:30)
[2019-12-03 11:14] LABS: PLATELET ESTIMATE NORMAL
[2019-12-03] MEDS ORDERED: CLONIDINE 0.1MG TABLET PO NR (17:03)
[2019-12-03] MEDS: LEVOFLOXACIN 500MG PREMIX 100 ML IV SCH (21:48)
[2019-12-04] VITALS (55 sets, daily range): BP systolic 128–181; BP diastolic 79–122
[2019-12-04] MEDS: HYDRALAZINE 20MG/ML VIAL IV PRN ×2 (00:01→06:35)
[2019-12-04] MEDS: INSULIN LISPRO 100 UNITS/ML SUBCUT SCH ×4 (00:01→17:26)
[2019-12-04 05:48] LABS: HEMATOCRIT. 34.7 % (36.0-48.0); HEMOGLOBIN. 11.7 g/dL (12.0-16.0); MEAN CORPUSCULAR HEMOGLOBIN 34.8 pg (28.0-32.0); MEAN CORPUSCULAR VOLUME 102.9 fL (81.0-99.0); MEAN PLATELET VOLUME 8.2 fl (7.4-10.4); PLATELET 243 x1000/uL (130-400); RED BLOOD CELL COUNT 3.37 mill/uL (4.2-5.4); RED CELL DISTRIBUTION WIDTH 17.1 % (11.6-14.6)
[2019-12-04 05:55] LABS: CHLORIDE 112 mEq/L (98-107)
[2019-12-04] MEDS: BLOOD SUGAR DIAGNOSTIC STRIP TEST SCH ×3 (06:34→17:25)
[2019-12-04 07:22] LABS: PLATELET ESTIMATE NORMAL
[2019-12-04 08:38] LABS: BG BASE EXCESS 0.7 mmol/L (-2.0-2.0); BG CARBOXYHEMOGLOBIN 0.3 % (0.5-1.5); BG DEOXYHEMOGLOBIN 1.1 % (0.0-5.0); BG FRACTION INSPIRED OXYGEN 40; BG HCO3 ACT 24.1 mmol/L (22.0-26.0); BG METHEMOGLOBIN 0.1 % (0.0-1.5); BG OXYGEN SATURATION 98.9 % (92.0-98.5); BG OXYHEMOGLOBIN 98.5 % (94.0-97.0); BG PCO2 34.6 mmHg (35.0-45.0); BG PH 7.461 (7.350-7.450); BG PO2 146.1 mmHg (75.0-100.0); BG PRESSURE SUPPORT 12; BG SAMPLE SITE RIGHT RADIAL; BG TIDAL VOLUME(mL) 450 mL; BG TOTAL HEMOGLOBIN 12.2 g/dL (12.0-18.0); BG VENT MODE VENT - SIMV; BG VENT RATE 8 set
[2019-12-04] MEDS: ENOXAPARIN 40MG/0.4ML SYR SUBCUT SCH (09:26)
[2019-12-04] MEDS: MORPHINE SULFATE 2 MG/ML CPJ (NOT FOR IM USE) IV PRN (11:00)
[2019-12-04] MEDS: LORAZEPAM 2MG/ML CPJ IV PRN (12:23)
[2019-12-04 14:37] LABS: COVID-19 PCR RNA NOT DETECTED
[2019-12-04 14:38] LABS: COVID-19 PCR RNA NOT DETECTED
[2019-12-04] MEDS: LEVOFLOXACIN 500MG PREMIX 100 ML IV SCH (20:12)
[2019-12-04] MEDS: HYDROCODONE/ACETAMINOPHEN 10/325MG TABLET PO PRN (20:27)
[2019-12-04] MEDS: CLONIDINE 0.1MG TABLET PO PRN (22:30)
[2019-12-05] VITALS (60 sets, daily range): BP systolic 128–197; BP diastolic 76–124
[2019-12-05] MEDS: BLOOD SUGAR DIAGNOSTIC STRIP TEST SCH ×4 (00:24→18:03)
[2019-12-05] MEDS: HYDROCODONE/ACETAMINOPHEN 10/325MG TABLET PO PRN (02:05)
[2019-12-05] MEDS: MORPHINE SULFATE 2 MG/ML CPJ (NOT FOR IM USE) IV PRN ×3 (03:21→19:18)
[2019-12-05] MEDS: HYDRALAZINE 20MG/ML VIAL IV PRN ×2 (04:30→18:43)
[2019-12-05] MEDS: LORAZEPAM 2MG/ML CPJ IV PRN (04:51)
[2019-12-05 05:14] LABS: HEMATOCRIT. 33.3 % (36.0-48.0); HEMOGLOBIN. 11.2 g/dL (12.0-16.0); MEAN CORPUSCULAR HEMOGLOBIN 34.5 pg (28.0-32.0); MEAN PLATELET VOLUME 8.4 fl (7.4-10.4); PLATELET 214 x1000/uL (130-400); RED BLOOD CELL COUNT 3.24 mill/uL (4.2-5.4); RED CELL DISTRIBUTION WIDTH 16.9 % (11.6-14.6)
[2019-12-05 05:34] LABS: CHLORIDE 112 mEq/L (98-107)
[2019-12-05] MEDS: INSULIN LISPRO 100 UNITS/ML SUBCUT SCH ×4 (06:00→18:00)
[2019-12-05 07:01] LABS: PLATELET ESTIMATE NORMAL
[2019-12-05] MEDS: ENOXAPARIN 40MG/0.4ML SYR SUBCUT SCH (08:18)
[2019-12-05] MEDS: CLONIDINE 0.1MG TABLET PO PRN ×2 (14:08→20:30)
[2019-12-05] MEDS: LEVOFLOXACIN 500MG PREMIX 100 ML IV SCH (20:31)
[2019-12-06] VITALS (45 sets, daily range): BP systolic 119–166; BP diastolic 78–114
[2019-12-06] MEDS: HYDRALAZINE HCL 50MG TABLET PEG SCH ×4 (00:37→21:14)
[2019-12-06] MEDS: BLOOD SUGAR DIAGNOSTIC STRIP TEST SCH ×5 (00:48→23:53)
[2019-12-06] MEDS: LORAZEPAM 2MG/ML CPJ IV PRN ×3 (04:00→14:51)
[2019-12-06] MEDS: CLONIDINE 0.1MG TABLET PO PRN ×2 (04:00→10:15)
[2019-12-06] MEDS: INSULIN LISPRO 100 UNITS/ML SUBCUT SCH ×5 (06:00→23:53)
[2019-12-06] MEDS: ENOXAPARIN 40MG/0.4ML SYR SUBCUT SCH (08:51)
[2019-12-06] MEDS: MORPHINE SULFATE 2 MG/ML CPJ (NOT FOR IM USE) IV PRN (09:56)
[2019-12-06] MEDS: HYDRALAZINE 20MG/ML VIAL IV PRN (17:17)
[2019-12-07] VITALS (47 sets, daily range): BP systolic 112–203; BP diastolic 72–134
[2019-12-07] MEDS: CLONIDINE 0.1MG TABLET PO PRN ×2 (05:05→17:47)
[2019-12-07] MEDS: HYDRALAZINE HCL 50MG TABLET PEG SCH (05:06)
[2019-12-07] MEDS: INSULIN LISPRO 100 UNITS/ML SUBCUT SCH ×4 (05:19→23:12)
[2019-12-07] MEDS: BLOOD SUGAR DIAGNOSTIC STRIP TEST SCH ×4 (05:19→23:13)
[2019-12-07] MEDS: ENOXAPARIN 40MG/0.4ML SYR SUBCUT SCH (08:16)
[2019-12-07] MEDS ORDERED: METOPROLOL TARTRATE 25MG TABLET PO SCH (09:00)
[2019-12-07] MEDS ORDERED: HYDRALAZINE HCL 25MG TABLET PEG SCH (14:00)
[2019-12-07] MEDS: HYDRALAZINE HCL 100MG TABLET PEG SCH (21:30)
[2019-12-07] MEDS: METOPROLOL TARTRATE 50MG TABLET PO SCH (21:30)
[2019-12-07] MEDS: CLONIDINE 0.1MG TABLET PO SCH (21:30)
[2019-12-08] VITALS (37 sets, daily range): BP systolic 115–168; BP diastolic 78–114
[2019-12-08] MEDS: HYDRALAZINE 20MG/ML VIAL IV PRN ×2 (02:15→16:01)
[2019-12-08] MEDS: INSULIN LISPRO 100 UNITS/ML SUBCUT SCH ×2 (05:53→12:00)
[2019-12-08] MEDS: BLOOD SUGAR DIAGNOSTIC STRIP TEST SCH ×2 (05:53→12:28)
[2019-12-08] MEDS: HYDRALAZINE HCL 100MG TABLET PEG SCH ×2 (06:11→13:02)
[2019-12-08] MEDS: CLONIDINE 0.1MG TABLET PO SCH (10:57)
[2019-12-08] MEDS: METOPROLOL TARTRATE 50MG TABLET PO SCH (10:57)
[2019-12-08] MEDS: ENOXAPARIN 40MG/0.4ML SYR SUBCUT SCH (10:57)
[2019-12-08] MEDS ORDERED: LEVO500T2 GT (15:28)
== END 2019-12-08 17:52 | DRG 720 ==
LOC: ER 22:07 → EDBEDREQ 22:29 → EDBEDREQSVC 22:29 → MICUSO 12-02 01:51 → EDBEDREQTM 12-02 01:52 → EDBEDREQDT 12-02 01:52 → EDBEDREQ 12-02 01:52 → ENRESERV 12-02 07:33
PROVIDERS: ADMIT Internal Medicine; ATTEND Internal Medicine
PROC: 5A1955Z Respiratory Ventilation, Greater than 96 Consecutive Hours (ICD-10-PCS; principal; 2019-11-30)
DX: A41.9 Sepsis, unspecified organism (principal); J96.21 Acute and chronic respiratory failure with hypoxia; Z99.11 Dependence on respirator [ventilator] status; J18.9 Pneumonia, unspecified organism; E46 Unspecified protein-calorie malnutrition; Z93.0 Tracheostomy status; I11.0 Hypertensive heart disease with heart failure; E66.01 Morbid (severe) obesity due to excess calories; G62.9 Polyneuropathy, unspecified; E87.5 Hyperkalemia; I50.9 Heart failure, unspecified; B37.49 Other urogenital candidiasis; D64.9 Anemia, unspecified; E05.90 Thyrotoxicosis, unspecified without thyrotoxic crisis or storm; E03.9 Hypothyroidism, unspecified; J45.909 Unspecified asthma, uncomplicated; R74.0 Nonspecific elevation of levels of transaminase and lactic acid dehydrogenase [LDH]; E78.5 Hyperlipidemia, unspecified; D72.810 Lymphocytopenia; N28.9 Disorder of kidney and ureter, unspecified; E87.6 Hypokalemia; Q85.00 Neurofibromatosis, unspecified; Z88.0 Allergy status to penicillin; Z68.35 Body mass index [BMI] 35.0-35.9, adult; Z87.01 Personal history of pneumonia (recurrent); Z03.818 Encounter for observation for suspected exposure to other biological agents ruled out; Z93.1 Gastrostomy status
CPT/HCPCS: 36415; 36600; 71045; 80048; 80053; 81003; 82375; 82805; 82962; 83036; 83605; 83880; 84145; 84484; 84703; 85025; 85379; 93005; 99291; J0360; J1650; J1815; J1956; J2060; J2270; J3370; J3480; J3490; J7040; J7060